=== PATIENT | male | born 1985 | race Caucasian/White ===

== ENCOUNTER 2020-03-29 12:57 | Emergency (ER) | payer MEDICAID ==
[~2020-03-29] VITALS: Ht 172.7 cm; Wt 79.4 kg
--- NOTE | 2020-03-29 13:22 | NUR ---
PRIYANK ARCINIEGA FOR MED CLEARANCE, PT ELVI, COOPERATIVE
--- NOTE | 2020-03-29 14:00 | NUR ---
DR POWERS IN TO ASSESS
[2020-03-29 14:01] VITALS: BP_SYST 113
--- NOTE | 2020-03-29 14:30 | NUR ---
CALM, ALERT, RESP UNLABORED, SKIN WARM AND DRY,. NO COMPLAINTS, LABS DRAWN, TOLERATED WELL. COMMUNICATES CLEARLY, OFFICER AT BEDSIDE
[2020-03-29 16:30] VITALS: BP_SYST 113
--- NOTE | 2020-03-29 16:30 | NUR ---
Patient given written and verbal discharge instructions and verbalizes understanding. ER MD discussed with patient the results and treatment provided. Patient in stable condition. ID arm band removed. Patient educated on pain management and to follow up with PMD. Pain Scale []. Opportunity for questions provided and answered. Medication side effect fact sheet provided.
== END 2020-03-29 16:30 ==
LOC: SED 12:57
DX: Z02.89 Encounter for other administrative examinations (principal)
CPT/HCPCS: 99283